=== PATIENT | male | born 1995 | race Caucasian/White ===

== ENCOUNTER 2018-07-10 09:32 | Emergency (ER) | payer MEDICAID ==
[2018-07-10 09:46] VITALS: BP 112/72; PULSE 68; RESP 18; TEMP 97.7; O2SAT 98
--- NOTE | 2018-07-10 10:25 | C.PDOC ---
History Of Present Illness 22 year old male presents to ED with complaint of itchy rash between the right third and fourth fingers. [place]. Patient has been scratching it. Patient denies fever, rash to any other area, difficulty breathing, mouth swelling, and tongue swelling. Time Seen by Provider: 07/10/18 10:20 Chief Complaint (Nursing): Abnormal Skin Integrity History Per: Patient History/Exam Limitations: no limitations Onset/Duration Of Symptoms: Days (2) Current Symptoms Are (Timing): Still Present Location Of Injury: Right: Hand (rash between the third and fourth finger) Quality Of Symptoms: Itching Past Medical History Reviewed: Historical Data, Nursing Documentation, Vital Signs Vital Signs: Last Vital Signs Temp 97.7 F 07/10/18 09:42 Pulse 68 07/10/18 09:42 Resp 18 07/10/18 09:42 BP 112/72 07/10/18 09:42 Pulse Ox 98 07/10/18 09:42 Primary Care Provider: FAMILY PROVIDER,NO - Medical History PMH: Anxiety Surgical History: No Surg Hx Family History: States: Unknown Family Hx - Social History Hx Alcohol Use: No Hx Substance Use: No - Immunization History Hx Tetanus Toxoid Vaccination: Yes Hx Influenza Vaccination: No Hx Pneumococcal Vaccination: No Review Of Systems Constitutional: Negative for: Fever, Chills, Weakness ENT: Negative for: Mouth Swelling, Throat Swelling Respiratory: Negative for: Shortness of Breath, Wheezing Skin: Positive for: Rash (between the third and fourth fingers of the right hand) Neurological: Negative for: Weakness, Numbness Physical Exam - Physical Exam Appears: Non-toxic, No Acute Distress Skin: Rash (3 by 3 cm vasicular rash in the web spaces of the right hand between the 2nd and 3rd digit and the 3rd and 4th digit) Head: Atraumatic, Normacephalic Oral Mucosa: Moist Neck: Normal ROM, Supple Chest: Symmetrical, No Deformity Respiratory: No Accessory Muscle Use, No Rales, No Rhonchi, No Wheezing Extremity: Capillary Refill (<2 seconds) Extremity: Bilateral: Atraumatic, Normal ROM Pulses: Left Radial: Normal, Right Radial: Normal Neurological/Psych: Oriented x3, Normal Speech, Normal Cognition ED Course And Treatment O2 Sat by Pulse Oximetry: 98 (in RA) Pulse Ox Interpretation: Normal Progress Note: Patient given Pepcid PO and prednisone PO. Patient is resting comfortably, in no acute distress, and stable for discharge. Patient advised to follow up with clinic. Patient advised to return to ED fi symptoms persist or worsen. Medical Decision Making Medical Decision Making: prob poison mary steroid burst Disposition Doctor Will See Patient In The: Office Counseled Patient/Family Regarding: Studies Performed, Diagnosis - Disposition Referrals: [facility] [Outside] [facility] [Outside] [facility] [Outside[facility] Disposition: HOME/ ROUTINE Disposition Time: 10:25 Condition: GOOD Additional Instructions: prednisone 40 mg for THREE more days Pepcid 20 mg every 12 hours for 5 days decreases itching and prevents stomach irritation from the Prednisone Calamine lotion to the affected areas 2-3x/day keep bandaged and try not to scratch. Prescriptions: Famotidine [Pepcid] 20 mg PO Q12H #10 tab predniSONE [predniSONE Tab] 40 mg PO DAILY #6 tab Instructions: Poison Mary Forms: [facility] (Congolese) - Clinical Impression Clinical Impression: Contact dermatitis due to poison mary - Scribe Statement The provider has reviewed the documentation as recorded by the Scribe (Vicenta Hernandez) All medical record entries made by the Scribe were at my direction and personally dictated by me. I have reviewed the chart and agree that the record accurately reflects my personal performance of the history, physical exam, medical decision making, and the department course for this patient. I have also personally directed, reviewed, and agree with the discharge instructions and disposition.
== END 2018-07-10 10:32 | disposition home or self-care (01) ==
LOC: C.ER 09:32
DX: L23.7 Allergic contact dermatitis due to plants, except food (principal)